=== PATIENT | female | born 1990 ===

== ENCOUNTER → 2025-02-17 15:01 | Outpatient (REF) | payer BC, SELFPAY ==
[2025-02-17 15:56] LABS: Hematocrit 38.8 % (37.0-47.0); Hemoglobin 13.1 g/dL (12.0-16.0); Mean Corp Hgb Conc. 33.8 g/dL (33.0-37.0); Mean Corpuscular Volume 88.6 fL (81.0-99.0); Nucleated Red Blood Cells % 0 %; Platelet Count 227 10^3/uL (130-400); Red Cell Dist. Width 12.1 % (11.5-14.5)
[2025-02-17 16:23] LABS: ALT (SGPT) 16 U/L (0-35); AST (SGOT) 18 U/L (14-36); Albumin 4.3 g/dl (3.5-5.0); Alkaline Phosphatase 68 U/L (38-126); Blood Urea Nitrogen 18 mg/dl (7-17); Calcium 9.3 mg/dl (8.4-10.2); Carbon Dioxide 26 mmol/L (22-30); Chloride 107 mmol/L (98-107); Glucose 93 mg/dl (70-99); Potassium 4.0 mmol/L (3.5-5.1); Sodium 137 mmol/L (135-145); Total Protein 6.8 g/dl (6.3-8.2); eGFR > 60.00
== END ==
LOC: RCS 15:01
PROVIDERS: ATTENDING PHYSICIAN Surgery Plastic and Reconstructive Surgery
DX: Z01.818 Encounter for other preprocedural examination (principal)
CPT/HCPCS: 36415; 80053; 85025; 93005

== ENCOUNTER 2025-03-19 06:37 | Day surgery (SDC) | payer BC, SELFPAY ==
[2025-03-19] VITALS (12 sets, daily range): BP systolic 1–128; BP diastolic 51–75
[2025-03-19] MEDS: TYLENOL 1000 MG PO (11:54)
[2025-03-19] MEDS: EMEND 40 MG PO (11:56)
[2025-03-19 12:02] LABS: HCG, Urine Qualitative Screen Negative
[2025-03-19] MEDS: NORMOSOL-R/PLASMALYTE-A 1000 IV (12:11)
--- NOTE | 2025-03-19 18:17 | W.IMMPOSTOP ---
Surgical Immed Post Op Note
-
Primary Surgeon: ROSAURA Ramirez MD
Assisting Surgeon:
Pre-op Diagnosis: Macromastia, intertrigo, cervicodynia
Post-op Diagnosis:
Procedure Performed: Bilateral breast reduction, suction assisted lipectomy of trunk
Anesthesia Type: GA
Specimen / Cultures:Right and Left breast tissue
Estimated Blood Loss: 30cc
Complications: None
Operative Findings: As expected
--- NOTE | 2025-03-19 18:17 | OR.RPT ---
Operative Report
Operative Report
Date of surgery: 03/19/2025
Surgeon: ROSAURA Ramirez MD
Preoperative diagnosis:
1. Macromastia
2. Intertrigo
3. Cervical neck pain
Postoperative diagnosis: Same
Procedure:
1. Bilateral breast reduction
2. Suction assisted lipectomy of trunk
Anesthesia: General
EBL: 30 cc
Specimens: Right breast tissue
Complications: None
Indications for procedure: Patient is a 34-year-old female with a history of large pendulous breast. She suffered for macromastia most of her adult life. She suffered from upper neck back pain and intermittent rashing at her skin folds. She met
medical necessity criteria for insurance based breast reduction. As such conversation was had about the resultant scars from breast reduction surgery. Risks of breast reduction surgery included changes to the nipple areolar complex including
necrosis, sensory changes, hematoma, seroma, persistent asymmetry, poor wound healing and skin loss and inability to breast-feed. She understood these risks and desire to proceed
Procedure in detail: The patient was identified preoperatively and the surgical site was confirmed to be the bilateral breast and lateral chest wall. Consents were confirmed and all questions were answered. Patient was marked in the upright
position for a Armstrong pattern superior medial pedicle breast reduction. Patient was taken back to the operating room and placed supine on the table. Anesthesia was induced and the patient was prepped and draped in the usual sterile fashion using
ChloraPrep solution. Timeout for patient safety was performed was confirmed that preoperative antibiotics have been administered and bilateral SCDs were in place. Procedure began with the injection 1% lidocaine with epinephrine in the inframammary
folds for local anesthesia. A 42 mm DineGasm cutter was then used to aric the bilateral nipple areolar complexes. Temporary breast tourniquet was placed over the right breast in the superior medial pedicle was de-epithelialized. The tourniquet was
released and the incisions were deepened with a 15 blade. Bovie electrocautery was used to dissect out the pedicle to the chest wall. The inferior and lateral excess glandular tissue was then excised and sent for pathology. Meticulous hemostasis
was ensured and a Marcaine block was performed in the pec and intercostal spaces. A drain was left due to the extensive size of the specimen weighing over 1200 g. The wound was tentatively closed at this time. Tumescent solution was then applied
into the lateral chest wall and lateral breast tissues. An appropriate amount of time was waited and suction assisted lipectomy of the trunk was performed as an adjunct procedure in order to contour the breast and further reduce the volume without
incisional burden. Attention was then drawn to the left breast where the exact same procedure was performed. A temporary tourniquet was placed and incisions were made with 15 blade. The superior medial pedicle was de-epithelialized and the
tourniquet was released. Bovie electrocautery was used to deepen the incisions and dissect out the pedicle down to the chest wall. The inferior and lateral access was then removed and sent for pathology. The specimen again weighed over 1200 g.
The wound was tentatively closed after performing Marcaine blocks and placing a drain. Tumescent solution was then placed in the lateral chest wall and lateral aspect of the breast. Suction assisted lipectomy was then performed in order to contour
the lateral breast and chest wall for Zakia reduction. The patient was then evaluated for symmetry. It had been determined that appropriate symmetry had been achieved. The wounds were all closed in layers using 2-0 Vicryl followed by 3-0 Monocryl
INSORB stapler and 4-0 Monocryl. At the end of the procedure the bilateral nipple areolar complex had good perfusion and evidence of cap refill without venous congestion. Patient tolerated the procedure well and was performed without complication.
All counts were correct at the end the case. Patient was extubated taken the PACU further care and the wounds were dressed appropriately. A compressive bra was placed.
[2025-03-19] MEDS: DILAUDID 0.25 MG IV (18:35)
[2025-03-19] MEDS: ZOFRAN 4 MG IV (19:20)
[2025-03-19] MEDS: ROXICODONE 5 MG PO (20:23)
== END 2025-03-19 20:50 | disposition home or self-care (01) ==
LOC: SDS 06:37
PROVIDERS: ATTENDING PHYSICIAN Surgery Plastic and Reconstructive Surgery
DX: N62 Hypertrophy of breast (principal); L30.4 Erythema intertrigo; M54.2 Cervicalgia
CPT/HCPCS: 19318; 81025; 88305